=== PATIENT | male | born 1975 | race African-American/Black ===

== ENCOUNTER 2019-05-18 10:45 | Emergency (ER) | payer SELFPAY ==
[~2019-05-18] VITALS: Ht 182.9 cm; Wt 72.7 kg
[2019-05-18 10:46] VITALS: Ht 182.9 cm; Wt 72.7 kg
[2019-05-18 11:43] LABS: HEMATOCRIT 43.6 % (42.0-54.0); MCH 30.7 pg (26.0-34.0); MCHC 34.4 g/dL (31.0-37.0); MCV 89.3 fL (80.0-100.0); MEAN PLATELET VOLUME 9.4 fL (7.4-10.4); PLATELET COUNT 320 10x3/uL (130-400); RBC 4.88 10x6/uL (4.20-6.10); RDW 13.1 % (11.5-14.5); WBC 4.1 10x3/uL (4.8-10.8)
[2019-05-18 11:54] LABS: CALC OSMOLALITY 277 mosm/kg (275-300); CALCIUM 9.2 mg/dL (8.5-10.1); CHLORIDE - SERUM 99 mmol/L (98-107); GLUCOSE 100 mg/dL (74-106); POTASSIUM - SERUM 3.8 mmol/L (3.5-5.1); SODIUM 138 mmol/L (136-145); UREA NITROGEN 18 mg/dL (7-18); eGFR NON AFRICAN AMERICAN 86 mL/min (90-120)
--- NOTE | 2019-05-18 11:59 | NUR ---
NURSE REVIEWED PT'S [place] SCALE AND IT REPORTED NO ACTION INDICATED. THIS NURSE REPORTED TO CHARGE NURSE THAT NO ACTION INDICATED. NURSE INQUIRED REASON FOR ASSESSMENT. CHARGE NURSE STATED HE DENIED SI AND HOMICIDE AND SHE WAS ATTEMPTING TO DETERMINE IF SHE NEEDED A SITTER. THIS NURSE SPOKE WITH PT ABOUT SI. PT DENIED SI AND HOMICIDAL THOUGHTS. NURSE DID NOT COMPLETE FURTHER ASSESSMENT DUE TO [place] SCALE REPORTING NO ACTION NEEDED AND PT DENIES SI.
[2019-05-18 12:00] LABS: ALBUMIN 4.3 g/dL (3.4-5.0); ALKALINE PHOSPHATASE 47 U/L (46-116); ALT (SGPT) 29 U/L (10-68); BILIRUBIN - TOTAL 1.06 mg/dL (0.2-1.3); MAGNESIUM - SERUM 1.9 mg/dL (1.8-2.4); PROTEIN - SERUM 8.2 g/dL (6.4-8.2)
[2019-05-18 13:16] LABS: LYMPHOCYTES 43 % (15-50); MONOCYTES 15 % (2-11); NEUTROPHILS 41 % (40-80); PLATELET ESTIMATE NORMAL
[2019-05-18 19:31] LABS: APPEARANCE CLEAR (CLEAR); COLOR YELLOW (YELLOW); GLUCOSE NEGATIVE (NEGATIVE); KETONE MODERATE mg/dL (NEGATIVE); NITRITE NEGATIVE (NEGATIVE); PROTEIN NEGATIVE (NEGATIVE)
[2019-05-18 19:32] LABS: BILIRUBIN NEGATIVE (NEGATIVE); UROBILINOGEN NORMAL (NORMAL)
[2019-05-18 19:39] LABS: UDS - AMPHET POSITIVE QUAL (NEGATIVE); UDS - BARB NEGATIVE QUAL (NEGATIVE); UDS - BENZO NEGATIVE QUAL (NEGATIVE); UDS - COCAINE NEGATIVE QUAL (NEGATIVE); UDS - OPIATE NEGATIVE QUAL (NEGATIVE); UDS - PCP NEGATIVE QUAL (NEGATIVE); UDS - THC POSITIVE QUAL (NEGATIVE)
[2019-05-19 06:31] VITALS: BP 122/70
== END 2019-05-19 06:32 ==
LOC: D.ER 10:45
PROVIDERS: Family Medicine
DX: F15.10 Other stimulant abuse, uncomplicated (principal); F32.9 Major depressive disorder, single episode, unspecified

== ENCOUNTER 2019-05-23 11:05 | Emergency (ER) | payer SELFPAY ==
[~2019-05-23] VITALS: Ht 170.2 cm; Wt 63.6 kg
[2019-05-23 11:13] VITALS: BP 142/107; Ht 170.2 cm; Wt 63.6 kg
== END 2019-05-23 12:08 | disposition home or self-care (01) ==
LOC: D.ER 11:05
DX: F19.10 Other psychoactive substance abuse, uncomplicated (principal); Z59.0 Homelessness

== ENCOUNTER 2019-05-23 12:21 | Emergency (ER) | payer SELFPAY ==
[~2019-05-23] VITALS: Ht 170.2 cm; Wt 68.2 kg
[2019-05-23 12:34] VITALS: BP 144/98; Ht 170.2 cm; Wt 68.2 kg
[2019-05-23 12:57] LABS: BASOPHILS 0.3 % (0-2); EOSINOPHILS 0.5 % (0-7); HEMATOCRIT 41.3 % (42.0-54.0); HEMOGLOBIN 14.2 g/dL (13.5-17.5); LYMPHOCYTES 46.1 % (15-50); MCH 30.7 pg (26.0-34.0); MCHC 34.4 g/dL (31.0-37.0); MCV 89.4 fL (80.0-100.0); MEAN PLATELET VOLUME 8.9 fL (7.4-10.4); MONOCYTES 8.1 % (2-11); PLATELET COUNT 347 10x3/uL (130-400); RBC 4.62 10x6/uL (4.20-6.10); RDW 13.3 % (11.5-14.5)
[2019-05-23 13:05] LABS: CALC OSMOLALITY 281 mosm/kg (275-300); CALCIUM 9.4 mg/dL (8.5-10.1); CARBON DIOXIDE 24.9 mmol/L (21.0-32.0); CHLORIDE - SERUM 103 mmol/L (98-107); GLUCOSE 105 mg/dL (74-106); POTASSIUM - SERUM 4.3 mmol/L (3.5-5.1); SODIUM 141 mmol/L (136-145); UREA NITROGEN 15 mg/dL (7-18); eGFR NON AFRICAN AMERICAN 86 mL/min (90-120)
[2019-05-23 13:09] LABS: ALBUMIN 4.4 g/dL (3.4-5.0); ALKALINE PHOSPHATASE 54 U/L (46-116); ALT (SGPT) 29 U/L (10-68); BILIRUBIN - TOTAL 0.57 mg/dL (0.2-1.3); MAGNESIUM - SERUM 1.7 mg/dL (1.8-2.4); PROTEIN - SERUM 7.8 g/dL (6.4-8.2)
[2019-05-23 14:55] LABS: UDS - AMPHET POSITIVE QUAL (NEGATIVE); UDS - BARB NEGATIVE QUAL (NEGATIVE); UDS - BENZO NEGATIVE QUAL (NEGATIVE); UDS - COCAINE POSITIVE QUAL (NEGATIVE); UDS - OPIATE NEGATIVE QUAL (NEGATIVE); UDS - PCP NEGATIVE QUAL (NEGATIVE); UDS - THC POSITIVE QUAL (NEGATIVE)
[2019-05-23 15:08] LABS: APPEARANCE CLEAR (CLEAR); BILIRUBIN NEGATIVE (NEGATIVE); COLOR YELLOW (YELLOW); GLUCOSE NEGATIVE (NEGATIVE); KETONE MODERATE mg/dL (NEGATIVE); NITRITE NEGATIVE (NEGATIVE); PROTEIN NEGATIVE (NEGATIVE); SPECIFIC GRAVITY 1.025 (1.005-1.020); UROBILINOGEN NORMAL (NORMAL)
== END 2019-05-23 17:14 | disposition home or self-care (01) ==
LOC: D.ER 12:21
PROVIDERS: Family Medicine
DX: F15.10 Other stimulant abuse, uncomplicated (principal); R44.3 Hallucinations, unspecified